=== PATIENT | male | born 1955 | race American Indian/Alaskan Native ===

== ENCOUNTER 2017-10-20 09:28 | Outpatient (CLI) | payer OTHER ==
--- NOTE | 2017-10-20 10:06 | XRay Report ---
AP AND LATERAL LUMBOSACRAL SPINE: History: Back pain. Borderline to mild osteopenia is suspected. There is minimal dextrocurvature to the lumbar spine estimated at 5 degrees with apex near L3-4. No evidence for compression deformity, subluxation or bone lesion. Mild degenerative disc disease and facet arthropathy are identified at all levels. Mild degenerative changes at the SI joints. IMPRESSION: Borderline to mild osteopenia. Mild scoliosis. Mild multilevel degenerative findings as described. No acute process noted.
== END 2017-10-20 09:29 | disposition home or self-care (01) ==
LOC: XRAY 09:28
PROVIDERS: ATTEND Internal Medicine
DX: M41.87 Other forms of scoliosis, lumbosacral region (principal); M47.897 Other spondylosis, lumbosacral region
CPT/HCPCS: 72100